=== PATIENT | male | born 1945 | race Caucasian/White ===

== ENCOUNTER → 2018-05-04 08:07 | Outpatient (CLI) | payer MEDICARE, OTHER | END | disposition home or self-care (01) | LOC: D.US 05-01 13:30 | DX: E04.9 Nontoxic goiter, unspecified (principal) ==

== ENCOUNTER → 2018-05-11 10:10 | Outpatient (CLI) | payer MEDICARE, OTHER | END | disposition home or self-care (01) | LOC: D.US 10:10 | DX: E04.9 Nontoxic goiter, unspecified (principal) ==

== ENCOUNTER → 2019-05-18 15:22 | Outpatient (CLI) | payer MEDICARE, OTHER | END | disposition home or self-care (01) | LOC: D.US 05-17 16:30 | PROVIDERS: ATTEND Family Medicine | DX: E04.1 Nontoxic single thyroid nodule (principal) ==